=== PATIENT | female | born 1955 | race Caucasian/White ===

== ENCOUNTER 2018-04-03 00:44 | Emergency (ER) | payer OTHER ==
[2018-04-03] MEDS ORDERED: Phenazopyridine HCl 97.5 MG TABLET ONE (01:25)
[2018-04-03 01:46] LABS: Bilirubin Negative (Negative); Blood, Urine Large (Negative); Clarity Turbid (Clear); Glucose, Urine (Dipstick) Negative (Negative); Leukocyte Large (Negative); Nitrite Positive (Negative); Protein, Urine (Dipstick) > or equal to 300 mg/dL (Neg-Trace); Urobilinogen 0.2 mg/dL (0.2-1.0)
[2018-04-03 01:47] LABS: Bacteria/HPF 4+ HPF (None Seen); Crystals/HPF 1+ AMORPH PHOS HPF (Negative); RBC/HPF GREATER THAN 50-TNTC HPF (0-3); Yeast-All Forms 2+ HPF (None Seen)
[2018-04-03] MEDS ORDERED: Nitrofurantoin Monohyd/M-Cryst 100 MG CAP ONE (02:01)
== END 2018-04-03 02:05 | disposition home or self-care (01) ==
LOC: MADERS 00:44
DX: N30.01 Acute cystitis with hematuria (principal); E03.9 Hypothyroidism, unspecified; E78.5 Hyperlipidemia, unspecified; I10 Essential (primary) hypertension; Z87.891 Personal history of nicotine dependence; Z79.899 Other long term (current) drug therapy
CPT/HCPCS: 51798; 81003; 81015; 87077; 87086; 87186